=== PATIENT | female | born 1985 | race Two or more races ===

== ENCOUNTER 2020-03-01 06:38 | Day surgery (SDC) | payer OTHER ==
[2020-03-01] VITALS (9 sets, daily range): BP systolic 96–114; BP diastolic 53–74
[~2020-03-01] VITALS: Ht 160 cm; Wt 59.0 kg
[~2020-03-01 06:38] MED LIST: MULTIVITAMINS1 EA11 ORAL; ceFAZolin 1gm IVPB IVPB ONE; celeBREX 200mg Cap **SURGERY PATIENTS ONLY ORAL ONE; oxyCONTIN 20mg tab ORAL ONE
[2020-03-01] MEDS ORDERED: NS Irrig 1000ml ONE (06:39)
[2020-03-01] MEDS ORDERED: Ropivacaine 5mg/ml Vial 20ml INJ ONE (07:28)
[2020-03-01] MEDS ORDERED: Lidocaine 1% MPF 10mg/ml 5ml ONE (07:28)
--- NOTE | 2020-03-01 07:44 | Pre-Procedure Note/Attestation ---
Pre-Procedure Note/Attestation Complete Prior to Procedure Planned Procedure: left Procedure Narrative: shoulder diagnostic arthroscopy, sad Indications for Procedure Pre-Operative Diagnosis: left shoulder internal derangement Attestation I attest that I discussed the nature of the procedure; its benefits; risks and complications; and alternatives (and the risks and benefits of such alternatives ), prior to the procedure, with the patient (or the patient's legal branch sales and service representative). I attest that, if there was a reasonable possibility of needing a blood transfusion, the patient (or the patient's legal branch sales and service representative) was given the [facility] standardized written summary, pursuant to the Jeremy Zack Blood Safety Act ([place] Health and Safety Code # 1645, as amended). I attest that I re-evaluated the patient just prior to the surgery and that there has been no change in the patient's H&P, except as documented below: Sanjeev Durant MD Mar 01, 2020 07:44
[2020-03-01] MEDS ORDERED: HYDROcodone/Acetamin 5/325 tab ORAL PRN (07:45)
[2020-03-01] MEDS ORDERED: Tylenol #3 tab (300mg/30mg) ORAL PRN (07:45)
[2020-03-01] MEDS ORDERED: HYDROmorphone 1mg/ml Carpuject SUBQ PRN (07:45)
--- NOTE | 2020-03-01 07:45 | Operative Note - PDOC ---
Operative Note Operative Note Pre-op Diagnosis: left shoulder internal derangement Procedure: see op report Post-op Diagnosis: same as pre-op plus Operative Findings: consistent w/pre-op dx studies Anesthesia: regional, MAC Specimen: none Complications: none Condition: stable Estimated Blood Loss: none Implant(s) used?: No Sanjeev Durant MD Mar 01, 2020 07:45
[2020-03-01] MEDS ORDERED: fentaNYL 100 mcg/2 mL IV ONE (08:20)
[2020-03-01] MEDS ORDERED: Midazolam 2mg/2ml Inj ONE (08:20)
[2020-03-01] MEDS ORDERED: Propofol 200mg/20ml IV ONE (08:22)
[2020-03-01] MEDS ORDERED: EPINEPHrine 1mg/1ml Amp ONE (08:58)
[2020-03-01] MEDS ORDERED: Duramorph PF 5mg/10ml amp ONE (08:58)
[2020-03-01] MEDS ORDERED: Ketorolac 30mg Inj ONE ×2 (08:58→10:26)
[2020-03-01] MEDS ORDERED: Kenalog-40 1ml Vial ONE (08:58)
[2020-03-01] MEDS ORDERED: Sodium Chloride 10ml vial INJ ONE (09:57)
[2020-03-01] MEDS ORDERED: ePHEDrine 50mg/ml Inj ONE (09:57)
--- NOTE | 2020-03-01 10:21 | Anethesia Preoperative Eval ---
Anesthesia Pre-op PMH/ROS General Date of Evaluation: Mar 01, 2020 Time of Evaluation: 09:10 Anesthesiologist: Rafiq ASA Score: ASA 2 Mallampati Score Class I : Soft palate, uvula, fauces, pillars visible Class II: Soft palate, uvula, fauces visible Class III: Soft palate, base of uvula visible Class IV: Only hard plate visible Mallampati Classification: Class II Surgeon: Bhargav Diagnosis: L shoulder pain Surgical Procedure: L shoulder scope Anesthesia History: none Family History: no anesthesia problems Allergies: Coded Allergies: No Known Allergies (Unverified , 02/28/20) Medications: see eMAR Patient NPO?: Yes Past Medical History Cardiovascular: Denies: HTN, CAD, RI, valve dz, arrhythmia, other Pulmonary: Denies: asthma, COPD, JACOB, other Gastrointestinal/Genitourinary: Reports: GERD - mild; Denies: CRI, ESRD, other Neurologic/Psychiatric: Denies: dementia, CVA, depression/anxiety, TIA, other Endocrine: Denies: DM, hypothyroidism, steroids, other HEENT: Denies: cataract (L), cataract (R), glaucoma, [place] (L), [place] (R), other Hematology/Immune: Denies: anemia, DVT, bleeding disorder, other Musculoskeletal/Integumentary: Denies: OA, RA, DJD, DDD, edema, other PMH Narrative: as above PSxH Narrative: none Anesthesia Pre-op Phys. Exam Physician Exam Last Vital Signs Date Time Temp Pulse Resp B/P (MAP) Pulse Ox O2 Delivery O2 Flow Rate FiO2 03/01/20 07:37 98.2 76 18 114/74 98 Room Air Constitutional: NAD Neurologic: CN 2-12 intact Cardiovascular: RRR, no M/R/G Respiratory: CTA Gastrointestinal: S/NT/ND Airway Exam Mallampati Score: Class II MO: full Neck: flexible ROM: full Teeth: intact Dentures: no upper, no lower Anesthesia Pre-op A/P Labs Urine Test Test 03/01/20 06:50 Urine HCG, Qualitative Negative (NEGATIVE) Kartik Feldman MD Mar 01, 2020 10:21
[2020-03-01] MEDS ORDERED: LR 1000ml 1,000 ML IVLG SCH (10:22)
[2020-03-01] MEDS ORDERED: Meperidine 25mg/0.5ml Inj (FOR RIGORS ONLY) IV PRN (10:30)
[2020-03-01] MEDS ORDERED: Ketorolac 30mg Inj IV PRN (10:30)
[2020-03-01] MEDS ORDERED: Metoclopramide 10mg/2ml Inj IVP PRN (10:30)
[2020-03-01] MEDS ORDERED: DiphenhydrAMINE 50mg/ml Inj IVP PRN (10:30)
--- NOTE | 2020-03-01 10:52 | Immediate Post-Op Evaluation ---
Immediate Post-Op Evalulation Immediate Post-Op Evalulation Procedure: L shoulder arthroscopy subacromion decompression Date of Evaluation: Mar 01, 2020 Time of Evaluation: 10:51 IV Fluids: 1000 Blood Products: none Estimated Blood Loss: none Urinary Output: none Blood Pressure Systolic: 96 Blood Pressure Diastolic: 52 Pulse Rate: 68 Respiratory Rate: 20 O2 Sat by Pulse Oximetry: 99 Temperature (Fahrenheit): 97.6 Pain Score (1-10): 1 Nausea: No Vomiting: No Complications none Patient Status: reacts, patent, none Hydration Status: adequate Kartik Feldman MD Mar 01, 2020 10:52
--- NOTE | 2020-03-01 12:07 | 48 Hour Post Anesthesia Eval ---
Post Anesthesia Evaluation Procedure: L shoulder arthroscopy subacromion decompression Date of Evaluation: Mar 01, 2020 Time of Evaluation: 12:05 Blood Pressure Systolic: 107 0: 56 Pulse Rate: 62 Respiratory Rate: 18 Temperature (Fahrenheit): 97.6 O2 Sat by Pulse Oximetry: 98 Airway: patent Nausea: No Vomiting: No Pain Intensity: 1 Hydration Status: adequate Cardiopulmonary Status: stable Mental Status/LOC: patient returned to baseline Follow-up Care/Observations: n/a Post-Anesthesia Complications: none Follow-up care needed: ready to discharge Kartik Feldman MD Mar 01, 2020 12:06
[2020-03-01] MEDS ORDERED: D5 1/2NS 1,000 ML IV SCH (17:00)
--- NOTE | 2020-03-01 17:29 | Operative Note - Dictated ---
DATE OF OPERATION: 03/01/2020 PREOPERATIVE DIAGNOSES: 1. Left shoulder partial rotator cuff tear/tendinosis. 2. Right and left shoulder impingement syndrome. POSTOPERATIVE DIAGNOSES: 1. Left shoulder partial rotator cuff tear/tendinosis. 2. Right and left shoulder impingement syndrome. PROCEDURES: 1. Left shoulder diagnostic arthroscopy. 2. Left shoulder subacromial decompression bursectomy. SURGEON: Sanjeev Durant M.D. ANESTHESIA: Interscalene with general. INDICATION FOR PROCEDURE: Patient is a pleasant female who has got progressive left shoulder pain, difficulty with overhead activities, failed conservative treatment, elected to undergo left shoulder diagnostic arthroscopy and subacromial decompression bursectomy. Risks, limitations, expectations, and complications of procedure were discussed in detail. All questions addressed. DESCRIPTION OF PROCEDURE: After informed was obtained, patient was brought to operating room. Patient was placed under interscalene general anesthesia. Left shoulder was prepped and draped in a sterile manner. Time-out was performed. Inferolateral stab incision was then made. Trocar introduced into the glenohumeral joint. No chondral damage. The anterior labrum was intact along with the superior labrum. Biceps tendon appeared to be intact. The articular side of the rotator cuff was intact. The camera was then repositioned in the subacromial space. There was hypertrophic bursal tissue, which was debrided. The anterior lateral aspect of the acromion was identified. Acromioplasty was started from lateral to medial and completed from posterior to anterior. Bursectomy was completed posteriorly. Once that was done, there was some fraying on the bursal side of the infraspinatus tendon, which was debrided. Once this was done, the instruments were removed. Portal sites were closed with 3-0 Monocryl sutures. Steri-Strips and a sterile dressing were applied. ESTIMATED BLOOD LOSS: None. COMPLICATIONS: None. SPECIMENS: None. Sanjeev Durant M.D. DR: HARRIET JOB#: [id number] CC:
== END 2020-03-01 12:45 | disposition home or self-care (01) ==
LOC: SUR 06:38
DX: M75.42 Impingement syndrome of left shoulder (principal); M75.112 Incomplete rotator cuff tear or rupture of left shoulder, not specified as traumatic; M77.9 Enthesopathy, unspecified; M75.41 Impingement syndrome of right shoulder; K21.9 Gastro-esophageal reflux disease without esophagitis
CPT/HCPCS: 29822; 81025; J0171; J0690; J1885; J2250; J2405; J2704; J2795; J3010; J3301; 94003; 94150